=== PATIENT | male | born 1940 | race Caucasian/White ===

== ENCOUNTER → 2016-06-29 | Outpatient (CLI) | payer OTHER ==
[2016-06-29 13:26] LABS: Cholesterol 177 mg/dL (<200); HDL Cholesterol 73 mg/dL (40-59); LDL Cholesterol 93 mg/dL (<100); Triglycerides 149 mg/dL (<150)
== END | disposition home or self-care (01) ==
LOC: LAB 10:31
PROVIDERS: ATTEND Internal Medicine
DX: I10 Essential (primary) hypertension (principal); E11.9 Type 2 diabetes mellitus without complications
CPT/HCPCS: 36415; 80061; 83036

== ENCOUNTER → 2016-07-15 | Outpatient (CLI) | payer OTHER ==
[2016-07-15 14:32] LABS: Albumin 3.8 g/dL (3.4-5.0); BUN/Creatinine Ratio 13.7; Calcium 9.8 mg/dL (8.5-10.1); Phosphorus 3.7 mg/dL (2.5-4.90); Potassium 4.3 mmol/L (3.5-5.1)
[2016-07-15 14:50] LABS: Basophils # (auto) 0.1 uL; Basophils % (auto) 0.8 % (0.0-2.0); Eosinophils # (auto) 0.3 uL; Eosinophils % (auto) 3.8 % (0.0-7.0); Hematocrit 45.8 % (41.0-53.0); Hemoglobin 15.3 g/dL (13.5-17.5); Lymphocytes # (auto) 1.5 uL; Lymphocytes % (auto) 20.2 % (10.0-50.0); Mean Corpuscular Hemoglobin 31.8 pg (28.0-32.0); Mean Corpuscular Hgb Conc. 33.3 g/dL (32.0-36.0); Mean Corpuscular Volume 95.3 fL (80.0-100.0); Mean Platelet Volume 7.8 fL (7.4-10.4); Monocytes # (auto) 0.7 uL; Monocytes % (auto) 8.8 % (0.0-12.0); Neutrophils % (auto) 66.4 % (37.0-80.0); Platelet Count (auto) 404 10^3/uL (140-450); Red Cell Distribution Width 14.3 % (11.6-16.0); White Blood Cell 7.5 10^3/uL (4.4-10.8)
[2016-07-15 15:57] LABS: Urine Bilirubin Negative (Negative); Urine Blood TRACE /uL (Negative); Urine Color Yellow (Yellow); Urine Glucose Normal (Normal); Urine Ketone Negative (Negative); Urine Nitrite Negative (Negative); Urine RBC <1 /hpf (0 - 3); Urine Squamous Epithelial Cell FEW /hpf (<5); Urine Urobilinogen Normal (Negative); Urine pH 5.5 (5.0-8.0)
== END | disposition home or self-care (01) ==
LOC: LAB 13:44
PROVIDERS: ATTEND Internal Medicine
DX: E55.9 Vitamin D deficiency, unspecified (principal); R80.9 Proteinuria, unspecified
CPT/HCPCS: 36415; 80069; 81001; 82306; 82570; 83036; 83970; 84156; 84550; 85025

== ENCOUNTER 2016-10-13 13:49 | Inpatient (IN) | payer OTHER ==
[~2016-10-13] VITALS: Ht 182.9 cm; Wt 118.0 kg
[2016-10-13 14:36] LABS: Basophils # (auto) 0 uL; Basophils % (auto) 0.5 % (0.0-2.0); Eosinophils # (auto) 0.1 uL; Eosinophils % (auto) 1.5 % (0.0-7.0); Hematocrit 46.8 % (41.0-53.0); Hemoglobin 15.5 g/dL (13.5-17.5); Lymphocytes # (auto) 1.1 uL; Mean Corpuscular Hemoglobin 31.9 pg (28.0-32.0); Mean Corpuscular Hgb Conc. 33.2 g/dL (32.0-36.0); Mean Corpuscular Volume 96.3 fL (80.0-100.0); Mean Platelet Volume 8.2 fL (7.4-10.4); Monocytes # (auto) 0.9 uL; Monocytes % (auto) 9.7 % (0.0-12.0); Neutrophils # (auto) 7.2 uL; Neutrophils % (auto) 76.3 % (37.0-80.0); Platelet Count (auto) 313 10^3/uL (140-450); Red Cell Distribution Width 15.4 % (11.6-16.0); White Blood Cell 9.4 10^3/uL (4.4-10.8)
[2016-10-13 14:51] LABS: Albumin 3.6 g/dL (3.4-5.0); Bilirubin, Total 1.8 mg/dL (0.2-1.0); Calcium 9.7 mg/dL (8.5-10.1)
[2016-10-13 14:54] LABS: Magnesium 2.3 mg/dL (1.6-2.6)
[2016-10-13] MEDS ORDERED: DEXTROSE (50%) 50ML SYRG IV PRN (19:30)
[2016-10-13] MEDS ORDERED: MORPHINE SULF INJ 2 MG/ML SYRINGE 1ML IV PRN ×2 (19:30)
[2016-10-13] MEDS ORDERED: PROMETHAZINE HCL 25 MG/ML 1ML IV PRN (19:30)
[2016-10-13] MEDS ORDERED: LORazepam 0.5 MG TAB PO PRN (19:30)
[2016-10-13] MEDS ORDERED: ACETAMINOPHEN 500 MG TAB PO PRN (19:30)
[2016-10-13] MEDS ORDERED: NITROGLYCERIN 0.4 MG SL TAB SL PRN (19:30)
[2016-10-13] MEDS ORDERED: TEMAZEPAM 15 MG CAP PO PRN (19:30)
[2016-10-13] MEDS ORDERED: ENOXAPARIN SOD 100 MG/1 ML SYRINGE SC ONE (19:30)
[2016-10-13 20:45] LABS: Temperature: 22.9 C (20.0-25.0)
[2016-10-13] MEDS ORDERED: ALBUTEROL SULF 2.5 MG/0.5ML(0.5%) NEB SOLN NEB PRN (21:00)
[2016-10-13] MEDS ORDERED: LORazepam 2MG/ML-1ML VIAL IV PRN (22:15)
[2016-10-13] MEDS: ACCU-CHEK COMFORT CURVE STRIP VI SCH (22:19)
[2016-10-13] MEDS: InsuLIN REG 1unit/0.01ml Soln (100units/ml) SC SCH (23:00)
[2016-10-14] MEDS ORDERED: GLIP-115 PO (00:19)
[2016-10-14] MEDS ORDERED: PANT40T PO (00:19)
[2016-10-14] MEDS ORDERED: GABA300C8 PO (00:19)
[2016-10-14] MEDS ORDERED: TRIA37.575 PO (00:19)
[2016-10-14] MEDS ORDERED: SIMV-8 PO (00:19)
[2016-10-14 04:34] VITALS: BP 123/74
[2016-10-14 05:30] VITALS: BP 131/69
[2016-10-14] MEDS: ACCU-CHEK COMFORT CURVE STRIP VI SCH ×4 (06:02→21:41)
[2016-10-14] MEDS: InsuLIN REG 1unit/0.01ml Soln (100units/ml) SC SCH ×4 (06:04→21:42)
[2016-10-14 07:03] LABS: Basophils # (auto) 0 uL; Basophils % (auto) 0.6 % (0.0-2.0); Eosinophils # (auto) 0.2 uL; Eosinophils % (auto) 3.2 % (0.0-7.0); Hematocrit 43.3 % (41.0-53.0); Hemoglobin 14.6 g/dL (13.5-17.5); Lymphocytes # (auto) 1.4 uL; Lymphocytes % (auto) 18.9 % (10.0-50.0); Mean Corpuscular Hemoglobin 32.1 pg (28.0-32.0); Mean Corpuscular Hgb Conc. 33.7 g/dL (32.0-36.0); Mean Corpuscular Volume 95.3 fL (80.0-100.0); Mean Platelet Volume 8.6 fL (7.4-10.4); Monocytes % (auto) 14.3 % (0.0-12.0); Neutrophils # (auto) 4.5 uL; Platelet Count (auto) 306 10^3/uL (140-450); Red Cell Distribution Width 15.8 % (11.6-16.0); White Blood Cell 7.2 10^3/uL (4.4-10.8)
[2016-10-14 07:32] LABS: B-Type Natriuretic Peptide 121.88 pg/mL (0-100); Temperature: 23.1 C (20.0-25.0)
[2016-10-14 07:35] LABS: Albumin 3.2 g/dL (3.4-5.0); BUN/Creatinine Ratio 22.6; Bilirubin, Total 2.2 mg/dL (0.2-1.0); Calcium 9.4 mg/dL (8.5-10.1); Potassium 3.6 mmol/L (3.5-5.1)
[2016-10-14 09:00] VITALS: BP 117/68
[2016-10-14] MEDS: FUROSEMIDE 40 MG/4 ML VIAL IV SCH (10:04)
[2016-10-14] MEDS: ENALAPRIL MALEATE 2.5 MG TAB PO SCH (10:05)
[2016-10-14] MEDS: POTASSIUM CHL 20 Meq TABLET PO SCH (10:05)
[2016-10-14] MEDS: ASPirin 81 mg TAB PO SCH (10:05)
[2016-10-14] MEDS ORDERED: PIO30T PO (11:15)
[2016-10-14] MEDS ORDERED: RANI150C11 PO (11:15)
[2016-10-14] MEDS ORDERED: SALINE 0.65 % NASAL SPRAY 45ML BOTTLE EACHNOSTRI ONE (13:45)
[2016-10-14] MEDS: SALINE 0.65 % NASAL SPRAY 45ML BOTTLE EACHNOSTRI SCH ×3 (14:19→21:42)
[2016-10-14] MEDS: HYDROcodone-ACET 5/325MG TAB PO PRN ×2 (16:32→23:08)
[2016-10-14 17:00] VITALS: BP 124/73
[2016-10-14] MEDS ORDERED: SALINE 0.65 % NASAL SPRAY 45ML BOTTLE EACHNOSTRI SCH (18:00)
[2016-10-14 21:34] VITALS: BP 125/66
[2016-10-15 01:37] LABS: Urine Bilirubin Negative (Negative); Urine Blood Negative /uL (Negative); Urine Color Yellow (Yellow); Urine Glucose Normal (Normal); Urine Hyaline Cast FEW /lpf (0 - 2); Urine Ketone Negative (Negative); Urine Mucus FEW (None Seen); Urine Nitrite Negative (Negative); Urine RBC <1 /hpf (0 - 3); Urine Squamous Epithelial Cell FEW /hpf (<5); Urine pH 5.5 (5.0-8.0)
[2016-10-15 04:52] VITALS: BP 109/71
[2016-10-15] MEDS: HYDROcodone-ACET 5/325MG TAB PO PRN ×3 (05:23→19:52)
[2016-10-15] MEDS: SALINE 0.65 % NASAL SPRAY 45ML BOTTLE EACHNOSTRI SCH ×4 (05:23→21:51)
[2016-10-15] MEDS: InsuLIN REG 1unit/0.01ml Soln (100units/ml) SC SCH ×3 (06:21→17:02)
[2016-10-15] MEDS: ACCU-CHEK COMFORT CURVE STRIP VI SCH ×4 (06:21→21:51)
[2016-10-15 07:36] LABS: Basophils # (auto) 0 uL; Basophils % (auto) 0.2 % (0.0-2.0); Eosinophils # (auto) 0.1 uL; Eosinophils % (auto) 1.2 % (0.0-7.0); Hematocrit 43.1 % (41.0-53.0); Hemoglobin 14.7 g/dL (13.5-17.5); Lymphocytes # (auto) 0.8 uL; Lymphocytes % (auto) 8.6 % (10.0-50.0); Mean Corpuscular Hemoglobin 32.3 pg (28.0-32.0); Mean Corpuscular Volume 94.9 fL (80.0-100.0); Mean Platelet Volume 8.4 fL (7.4-10.4); Monocytes # (auto) 1.2 uL; Monocytes % (auto) 13.8 % (0.0-12.0); Neutrophils # (auto) 6.8 uL; Neutrophils % (auto) 76.2 % (37.0-80.0); Platelet Count (auto) 305 10^3/uL (140-450); Red Cell Distribution Width 15.3 % (11.6-16.0)
[2016-10-15 07:50] LABS: BUN/Creatinine Ratio 21.9; Calcium 9.3 mg/dL (8.5-10.1); Potassium 3.5 mmol/L (3.5-5.1)
[2016-10-15 09:00] VITALS: BP 121/68
[2016-10-15] MEDS: FUROSEMIDE 40 MG/4 ML VIAL IV SCH (10:19)
[2016-10-15] MEDS: ASPirin 81 mg TAB PO SCH (10:19)
[2016-10-15] MEDS: ENALAPRIL MALEATE 2.5 MG TAB PO SCH (10:20)
[2016-10-15] MEDS: POTASSIUM CHL 20 Meq TABLET PO SCH (10:20)
[2016-10-15 13:00] VITALS: BP 104/74
[2016-10-15] MEDS ORDERED: DEXTROSE (50%) 50ML SYRG IV PRN (13:45)
[2016-10-15 17:00] VITALS: BP 106/62
[2016-10-15 22:00] VITALS: BP 95/58
[2016-10-15] MEDS ORDERED: InsuLIN REG 1unit/0.01ml Soln (100units/ml) SC SCH (22:00)
[2016-10-16] MEDS: HYDROcodone-ACET 5/325MG TAB PO PRN ×2 (04:43→10:59)
[2016-10-16 05:00] VITALS: BP 117/77
[2016-10-16 06:15] LABS: Basophils # (auto) 0 uL; Basophils % (auto) 0.3 % (0.0-2.0); Eosinophils # (auto) 0.2 uL; Eosinophils % (auto) 2.6 % (0.0-7.0); Hematocrit 44.6 % (41.0-53.0); Hemoglobin 14.9 g/dL (13.5-17.5); Lymphocytes # (auto) 1.3 uL; Lymphocytes % (auto) 14.8 % (10.0-50.0); Mean Corpuscular Hemoglobin 32.2 pg (28.0-32.0); Mean Corpuscular Hgb Conc. 33.3 g/dL (32.0-36.0); Mean Corpuscular Volume 96.5 fL (80.0-100.0); Mean Platelet Volume 8.5 fL (7.4-10.4); Monocytes % (auto) 11.5 % (0.0-12.0); Neutrophils # (auto) 6.2 uL; Neutrophils % (auto) 70.8 % (37.0-80.0); Platelet Count (auto) 330 10^3/uL (140-450); Red Cell Distribution Width 15.8 % (11.6-16.0); White Blood Cell 8.8 10^3/uL (4.4-10.8)
[2016-10-16] MEDS: SALINE 0.65 % NASAL SPRAY 45ML BOTTLE EACHNOSTRI SCH ×2 (06:19→11:54)
[2016-10-16] MEDS: ACCU-CHEK COMFORT CURVE STRIP VI SCH ×2 (06:20→11:25)
[2016-10-16] MEDS: InsuLIN REG 1unit/0.01ml Soln (100units/ml) SC SCH ×2 (06:20→11:26)
[2016-10-16 06:38] LABS: Albumin 3.2 g/dL (3.4-5.0); BUN/Creatinine Ratio 22.6; Bilirubin, Total 1.5 mg/dL (0.2-1.0); Calcium 9.3 mg/dL (8.5-10.1); Magnesium 2.3 mg/dL (1.6-2.6); Phosphorus 3.6 mg/dL (2.5-4.90); Potassium 4.1 mmol/L (3.5-5.1); Total Protein 7.6 g/dL (6.4-8.2); Uric Acid 8.7 mg/dL (3.5-7.2)
[2016-10-16 09:00] VITALS: BP 141/66
[2016-10-16] MEDS: FUROSEMIDE 40 MG/4 ML VIAL IV SCH (10:05)
[2016-10-16] MEDS: ASPirin 81 mg TAB PO SCH (10:05)
[2016-10-16] MEDS: POTASSIUM CHL 20 Meq TABLET PO SCH (10:06)
[2016-10-16] MEDS: ENALAPRIL MALEATE 2.5 MG TAB PO SCH (10:06)
[2016-10-16 13:00] VITALS: BP 121/70
[2016-10-16 14:38] VITALS: BP 141/66
== END 2016-10-16 15:00 | disposition home or self-care (01) | DRG 70 ==
LOC: ER 13:52 → TELE 13:53 → TELE-WESTW 21:18
PROVIDERS: ADMIT Internal Medicine; ATTEND Family Medicine
DX: I67.9 Cerebrovascular disease, unspecified (principal); J96.01 Acute respiratory failure with hypoxia; N17.0 Acute kidney failure with tubular necrosis; E11.21 Type 2 diabetes mellitus with diabetic nephropathy; E11.22 Type 2 diabetes mellitus with diabetic chronic kidney disease; N18.3 Chronic kidney disease, stage 3 (moderate); M54.9 Dorsalgia, unspecified; G89.29 Other chronic pain; E66.9 Obesity, unspecified; E11.40 Type 2 diabetes mellitus with diabetic neuropathy, unspecified; E78.5 Hyperlipidemia, unspecified; I67.2 Cerebral atherosclerosis; I10 Essential (primary) hypertension; E11.65 Type 2 diabetes mellitus with hyperglycemia; E86.0 Dehydration; K21.9 Gastro-esophageal reflux disease without esophagitis; M12.9 Arthropathy, unspecified; M16.9 Osteoarthritis of hip, unspecified; M17.9 Osteoarthritis of knee, unspecified; Z79.899 Other long term (current) drug therapy; Y92.481 Parking lot as the place of occurrence of the external cause; Z82.49 Family history of ischemic heart disease and other diseases of the circulatory system; Z83.3 Family history of diabetes mellitus; Z79.82 Long term (current) use of aspirin; Z86.73 Personal history of transient ischemic attack (TIA), and cerebral infarction without residual deficits; Z68.35 Body mass index [BMI] 35.0-35.9, adult
CPT/HCPCS: 36415; 70450; 70551; 71020; 76775; 80048; 80053; 80061; 80307; 81001; 82306; 82550; 82570; 82607; 82746; 82962; 83036; 83735; 83880; 83970; 84100; 84156; 84443; 84484; 84550; 85025; 85379; 85652; 86141; 93005; 93306; 93886; 93970; 96372; 97001; 97116; 97530; J1815

== ENCOUNTER → 2016-11-03 | Outpatient (CLI) | payer OTHER ==
[~2016-11-03] MED LIST: GABA-497 PO; GLIP-115 PO; PANT40T PO; PIO30T PO; RANI150C11 PO; SIMV-8 PO; TRIA37.575 PO
[2016-11-03 14:03] LABS: Urine RBC None Seen /hpf (0 - 3)
[2016-11-03 14:32] LABS: Urine Bilirubin Negative (Negative); Urine Blood Negative /uL (Negative); Urine Color Yellow (Yellow); Urine Ketone Negative (Negative); Urine Nitrite Negative (Negative); Urine Urobilinogen Normal (Negative); Urine pH 5.5 (5.0-8.0)
[2016-11-03 14:33] LABS: Urine Glucose 4+ mg/dL (Normal)
== END | disposition home or self-care (01) ==
LOC: LAB 13:46
PROVIDERS: ATTEND Internal Medicine
DX: N39.0 Urinary tract infection, site not specified (principal)
CPT/HCPCS: 81001

== ENCOUNTER 2016-12-13 09:07 | Emergency (ER) | payer OTHER ==
[~2016-12-13] VITALS: Ht 175.3 cm; Wt 95.3 kg
[2016-12-13 09:48] LABS: Basophils # (auto) 0.1 uL; Basophils % (auto) 0.9 % (0.0-2.0); CONDITION Y; Eosinophils # (auto) 0.1 uL; Eosinophils % (auto) 1.1 % (0.0-7.0); Hematocrit 43.1 % (41.0-53.0); Hemoglobin 14.6 g/dL (13.5-17.5); Lymphocytes # (auto) 1.2 uL; Lymphocytes % (auto) 13.4 % (10.0-50.0); Mean Corpuscular Hemoglobin 31.8 pg (28.0-32.0); Mean Corpuscular Hgb Conc. 33.8 g/dL (32.0-36.0); Mean Corpuscular Volume 94.3 fL (80.0-100.0); Mean Platelet Volume 7.5 fL (7.4-10.4); Monocytes # (auto) 0.6 uL; Neutrophils % (auto) 77.6 % (37.0-80.0); Platelet Count (auto) 388 10^3/uL (140-450); Red Cell Distribution Width 15.4 % (11.6-16.0)
[2016-12-13 10:13] LABS: Albumin 3.3 g/dL (3.4-5.0); BUN/Creatinine Ratio 16.2; Bilirubin, Total 0.8 mg/dL (0.2-1.0); Potassium 4.1 mmol/L (3.5-5.1); Total Protein 7.4 g/dL (6.4-8.2)
[2016-12-13 11:49] VITALS: BP 115/58
[2016-12-13 12:39] LABS: Urine Bilirubin Negative (Negative); Urine Blood Negative /uL (Negative); Urine Color Yellow (Yellow); Urine Glucose Normal (Normal); Urine Ketone Negative (Negative); Urine Mucus FEW (None Seen); Urine Nitrite Negative (Negative); Urine RBC <1 /hpf (0 - 3); Urine Urobilinogen Normal (Negative); Urine pH 5.5 (5.0-8.0)
== END 2016-12-13 13:35 | disposition home or self-care (01) ==
LOC: EDBD 09:07 → ER 09:11
DX: E11.649 Type 2 diabetes mellitus with hypoglycemia without coma (principal); I12.9 Hypertensive chronic kidney disease with stage 1 through stage 4 chronic kidney disease, or unspecified chronic kidney disease; E11.22 Type 2 diabetes mellitus with diabetic chronic kidney disease; N18.3 Chronic kidney disease, stage 3 (moderate); I63.9 Cerebral infarction, unspecified
CPT/HCPCS: 36415; 71010; 80053; 81001; 82962; 85025